=== PATIENT | male | born 1940 | race Caucasian/White ===

== ENCOUNTER → 2019-08-17 | Outpatient (CLI) | payer OTHER, MEDICARE ==
--- NOTE | 2019-08-17 10:46 | 2DMMODE ---
[facility] [place] [address] 2 D/M-MODE ECHOCARDIOGRAM Name: BLAKE VARGAS [id number] Admission: 08/17/19 Attend Phys: Mo Hdez Discharge: Date of : 44 Report #: [id number] THIS REPORT FOR: //name// APPROVED REPORT Study performed: 08/17/2019 09:07:44 EXAM: Comprehensive 2D, Doppler, and color-flow Echocardiogram Patient Location: Out-Patient Room #: Echo lab 2 Status: routine BSA: 2.16 HR: 53 bpm BP: 144/82 mmHg Rhythm: Bradycardia Other Information Study Quality: Good Indications Arrhythmia 2D Dimensions RVDd: 36.87 mm IVSd: 12.45 (7-11mm) LVOT Diam: 18.63 (18-24mm) LVDd: 43.97 mm PWd: 12.25 (7-11mm) Ascending Ao: 35.52 (22-36mm) LVDs: 26.75 (25-40mm) Aortic Root: 32.87 mm IVC: 23.00 mm Volumes Left Atrial Volume (Systole) Single Plane 4CH: 86.22 mL Single Plane 2CH: 109.08 mL LA ESV Index: 49.00 mL/m2 Aortic Valve AoV Peak Cade.: 1.83 m/s AO Peak Gr.: 13.38 mmHg LVOT Max P.09 mmHg LVOT Max V: 1.13 m/s CHANDRAKANT Vmax: 1.68 cm2 Mitral Valve E/A Ratio: 0.9 MV Decel. Time: 176.85 ms MV E Max Cade.: 0.85 m/s [facility] [address] [address] 2 D/M-MODE ECHOCARDIOGRAM Name: BLAKE VARGAS Room #: [facility]#: [id number] Admission: 08/17/19 [facility] Dis[facility]: Date of : 44 Report #: [id number] MV A Cade.: 0.92 m/s MV PHT: 51.29 ms IVRT: 119.95 ms Pulmonary Valve PV Peak Cade.: 1.13 m/s PV Peak Gr.: 5.14 mmHg Pulmonary Vein P Vein S: 0.60 m/s P Vein A: 0.39 m/s P Vein D: 0.33 m/s P Vein A Dur.: 120.0 msec P Vein S/D Ratio: 1.82 Tricuspid Valve TR Peak Cade.: 2.65 m/s TR Peak Gr.: 28.10 mmHg PA Pressure: 38.00 mmHg Left Ventricle The left ventricle is normal size. There is normal LV segmental wall motion. Mild concentric left ventricular hypertrophy. The left ventricular systolic function is normal. The left ventricular ejection fraction is within the normal range. LVEF is 55-60%. Grade II - pseudonormal filling dynamics. Right Ventricle The right ventricle is normal size. The right ventricular systolic function is normal. Atria Left atrium is dilated. Right atrium is dilated. Aortic Valve The aortic valve is normal in structure. Trace aortic regurgitation. There is no aortic valvular stenosis. Mitral Valve The mitral valve is normal in structure. Mild mitral regurgitation. No evidence of mitral valve stenosis. Tricuspid Valve The tricuspid valve is normal in structure. There is trace to mild tricuspid regurgitation. Estimated PAP 38 mmHg. There is mild pulmonary hypertension. Pulmonic Valve The pulmonary valve is normal in structure. Trace pulmonic [facility] [address] [place] [address] 2 D/M-MODE ECHOCARDIOGRAM Name: BLAKE VARGAS Room #: REG [facility]#: [id number] Admission: 08/17/19 [facility]end Phys: [facility] Discharge: Date of : 44 Report #: [id number] regurgitation. Great Vessels The aortic root is normal in size. IVC is dilated and collapses >50% with inspiration. Pericardium There is no pericardial effusion. <Conclusion> The left ventricle is normal size. LVEF is 55-60%. Grade II - pseudonormal filling dynamics. The right ventricle is normal size. Left atrium is dilated. Right atrium is dilated. Trace aortic regurgitation. Mild mitral regurgitation. There is trace to mild tricuspid regurgitation. Estimated PAP 38 mmHg. There is mild pulmonary hypertension. The aortic root is normal in size. There is no pericardial effusion. <ELECTRONICALLY SIGNED> By: Mikael Wang MD, FACC 08/17/19 [id number] Mikael Wang MD, FACC /INF
== END ==
LOC: NUC 08:07
DX: I08.1 Rheumatic disorders of both mitral and tricuspid valves (principal); I47.1 Supraventricular tachycardia

== ENCOUNTER → 2019-08-19 | Outpatient (CLI) | payer OTHER, MEDICARE | LOC: CV 10:32 | DX: I47.1 Supraventricular tachycardia (principal); E78.5 Hyperlipidemia, unspecified; I10 Essential (primary) hypertension; E11.9 Type 2 diabetes mellitus without complications; J45.909 Unspecified asthma, uncomplicated; Z79.899 Other long term (current) drug therapy ==